=== PATIENT | male | born 1945 | race Caucasian/White ===

== ENCOUNTER 2018-07-09 01:55 | Emergency (ER) | payer MEDICARE, OTHER ==
[~2018-07-09 01:55] MED LIST: ANAS1TAB12 PO; AZIT-18 PO; DOC100 PO; LACT1CAP50 PO; MELA1TAB23 PO; METH10CA PO; NEB5 PO; PER PO; POTA99TA13 PO; [UNRECOGNIZED DRUG - CODE] PO; [UNRECOGNIZED DRUG - CODE] PO; [UNRECOGNIZED DRUG - CODE] PO
--- NOTE | 2018-07-09 02:06 | ER Report ---
History and Physical Time Seen By MD: 02:06 Hx. of Stated Complaint: PT REPORTS LEFT SIDED LOWER BACK PAIN WITH POSSIBLE ABSCESS. HPI/ROS CHIEF COMPLAINT: Left lower back pain. Lash flank pain HISTORY OF PRESENT ILLNESS: 73-year-old male presents ambulatory to the ER complaining of pain in his left flank for several days. He notes a small pustule over on his left flank. He thought he might be developing an abscess. He has a history of myelodysplastic syndrome and chronic immune deficiency. He reports she's had several infections which took a long time to heal. She notes no fever or chills. He's had no productive cough or shortness of breath. He's had no dysuria, frequency or hematuria. Patient describes deep aching 7/10 pain aggravated by movement. Patient notes no nausea, vomiting, diarrhea or const ipation. REVIEW OF SYSTEMS: Respiratory: No cough, no dyspnea. Cardiovascular: No chest pain, no palpitations. Gastrointestinal: No vomiting, no abdominal pain. Musculoskeletal: As above Allergies: Uncoded Allergies: hayfever (Allergy, Mild, UNKNOWN, 01/28/12) Home Meds Active Scripts Hydrocodone Bit/Acetaminophen (HYDROCODON-ACETAMINOPHEN 5-325) 1 Each Tablet, 1 EACH PO Q4-6H PRN for PAIN, #12 TAB Prov:MELODIE FORD DO 07/09/18 Cephalexin 500 Mg Tab (KEFLEX 500 MG TAB) 500 Mg Tablet, 500 MG PO TID for infection, #20 TAB Prov:MELODIE FORD DO 07/09/18 Reported Medications Atorvastatin Calcium (ATORVASTATIN CALCIUM) 40 Mg Tablet, 1 TAB PO QDAY, TAB 07/09/18 Cetirizine Hcl (ZYRTEC) 10 Mg Tablet, 10 MG PO QPM, TAB 07/09/18 Aspirin (ASPIR 81) 81 Mg Tablet.dr, 81 MG PO QPM, TAB 07/09/18 Potassium (Potassium) 99 Mg Tablet, 99 MG PO DAILY, 0 Refills 08/06/11 Calcium/Magnesium (Rogelio-Mag With Aspartates Tablet) 1 Each Tablet, 1 EACH PO DAILY, 0 Refills 08/06/11 Cholecalciferol (Vitamin D) 2,000 Unit Tablet, 2400 UNIT PO DAILY, 0 Refills 08/06/11 Methyltestosterone (Android) 10 Mg Capsule, 5 MG PO DAILY, 0 Refills 08/06/11 Discontinued Reported Medications Melatonin (Melatonin) 1 Mg Tablet, 1 MG PO HS PRN, 0 Refills 08/06/11 Gelatin (Gelatin) 1 Cap Capsule, 1 CAP PO DAILY, 0 Refills 08/06/11 Nebivolol Hcl (Bystolic) 5 Mg Tablet, 5 MG PO DAILY, 0 Refills 08/06/11 Discontinued Scripts Azithromycin 250 Mg Tab (AZITHROMYCIN 250 MG TAB) 250 Mg Tablet, 0 PO QDAY, #6 TAB TAKE 2 TABLETS ON DAY 1 AND 1 TABLET ON DAYS 2-5 Prov:ELISEO PAUL MD 08/10/14 Past Medical/Surgical History PAST MEDICAL HISTORY Significant for: 1. Sleep apnea. The patient tried continuous passive airway pressure (CPAP), but it did not work for him. 2. Hypertension. 3. Myelodysplastic syndrome, consult at [facility] in [place] PAST SURGICAL HISTORY 1. Removal of a digital cyst from the left middle finger in 2002. 2. Broken right leg as a child. SOCIAL HISTORY The patient is single and does not have children. He works as a teacher. He has about five drinks per year. He denies any abuse of tobacco or drugs. FAMILY HISTORY Negative for cancer or blood diseases. Reviewed Nurses Notes: Yes Constitutional Vital Sign - Last 24 Hours 07/09/18 07/09/18 07/09/18 07/09/18 02:01 02:01 02:30 02:35 Temp 98.9 Pulse 80 74 Resp 18 B/P (MAP) 161/88 (112) 161/88 141/84 (103) Pulse Ox 95 94 O2 Delivery Room Air 07/09/18 07/09/18 07/09/18 07/09/18 02:47 02:50 03:00 03:05 Pulse 66 63 B/P (MAP) 137/77 (97) Pulse Ox 99 99 O2 Flow Rate 2.0 07/09/18 07/09/18 07/09/18 07/09/18 03:20 03:30 03:35 03:50 Pulse 64 67 63 B/P (MAP) 134/81 (98) Pulse Ox 99 99 07/09/18 07/09/18 07/09/18 07/09/18 04:03 04:05 04:20 04:30 Pulse 66 B/P (MAP) 115/75 (88) 120/74 (89) Pulse Ox 99 07/09/18 07/09/18 07/09/18 07/09/18 04:35 05:05 05:10 05:25 Pulse 69 58 Pulse Ox 98 97 98 96 07/09/18 07/09/18 05:40 05:55 Pulse Ox 97 99 Physical Exam Vital signs stable, afebrile, pulse ox normal General Appearance: The patient is alert, has no immediate need for airway protection and no current signs of toxicity. Skin warm, dry pain, mild distress HEENT: Pupils equal and round no injection. TMs normal, oropharynx without redness or exudate, mucous. Membranes are moist Respiratory: Chest is non tender, lungs are clear to auscultation. No wheezing or rails Cardiac: regular rate and rhythm, no murmur Gastrointestinal: Abdomen is soft and non tender, no masses, bowel sounds normal., Left CVA tenderness, there is a 1 cm healing erythematous area with a central scab on the left lateral flank. There is no fluctuance or warmth noted Musculoskeletal: Neck: Neck is supple and non tender. No lymphadenopathy, no meningismus Extremities have full range of motion and are non tender. No edema, no calf te nderness Skin: No rashes or lesions. DIFFERENTIAL DIAGNOSIS: After history and physical exam differential diagnosis was considered for flank pain including but not limited to musculoskeletal causes, kidney stone, pyelonephritis, shingles, and intra-abdominal causes such as diverticulitis and appendicitis. Additionally,abdominal pain including but not limited to appendicitis, cholecystitis, gastritis and urinary tract infection. Medical Decision Making Data Points Result Diagram: 07/09/18 0227 07/09/18 0227 Laboratory Hematology Test 07/09/18 02:27 07/09/18 03:42 Red Blood Count 3.32 M/uL (4.00-5.60) Mean Corpuscular Volume 104.5 fL (80.0-96.0) Mean Corpuscular Hemoglobin 35.9 pg (26.0-33.0) Mean Corpuscular Hemoglobin Concent 34.3 g/dL (32.0-36.0) Red Cell Distribution Width 16.7 % (11.5-14.5) Mean Platelet Volume 9.6 fL (7.2-11.1) Neutrophils (%) (Auto) % (39.4-72.5) Lymphocytes (%) (Auto) % (17.6-49.6) Monocytes (%) (Auto) % (4.1-12.4) Eosinophils (%) (Auto) % (0.4-6.7) Basophils (%) (Auto) % (0.3-1.4) Nucleated RBC Relative Count (auto) /100WBC Neutrophils # (Auto) K/uL (2.0-7.4) Lymphocytes # (Auto) K/uL (1.3-3.6) Monocytes # (Auto) K/uL (0.3-1.0) Eosinophils # (Auto) K/uL (0.0-0.5) Basophils # (Auto) K/uL (0.0-0.1) Nucleated RBC Absolute Count (auto) K/uL Neutrophils % (Manual) 35 % (39.4-72.5) Band Neutrophils % 4 % Lymphocytes % (Manual) 39 % (17.6-49.6) Atypical Lymphocytes % 3 % Monocytes % (Manual) 17 % (4.1-12.4) Eosinophils % (Manual) 0 % (0.4-6.7) Basophils % (Manual) 0 % (0.3-1.4) Metamyelocytes % 2 % Peripheral Blood Smear Yes Y/N Prothrombin Time 15.5 seconds (12.0-14.4) Prothromb Time International Ratio 1.22 Activated Partial Thromboplast Time 32 seconds (23-35) Sodium Level 139 mmol/L (137-145) Potassium Level 3.8 mmol/L (3.5-5.0) Chloride Level 104 mmol/L (98-107) Carbon Dioxide Level 27 mmol/L (22-30) Blood Urea Nitrogen 20 mg/dl (9-21) Creatinine 1.10 mg/dl (0.66-1.25) Glomerular Filtration Rate Calc > 60.0 Random Glucose 139 mg/dl (75-110) Calcium Level 8.9 mg/dl (8.4-10.2) Total Bilirubin 1.1 mg/dl (0.2-1.3) Aspartate Amino Transf (AST/SGOT) 20 U/L (0-35) Alanine Aminotransferase (ALT/SGPT) 23 U/L (0-56) Alkaline Phosphatase 85 U/L (0-126) Total Protein 8.3 g/dl (6.3-8.2) Albumin 4.0 g/dl (3.5-5.0) Amylase Level 78 U/L (0-110) Lipase 73 U/L (23-300) Prostate Specific Antigen 2.08 ng/ml (0.0-4.0) Urine Color Yellow Urine Clarity Clear Urine pH 5.0 pH (4.8-9.5) Urine Specific [place] 1.023 Urine Protein Negative mg/dL (NEGATIVE) Urine Glucose (UA) Negative mg/dL (NEGATIVE) Urine Ketones Negative mg/dL (NEGATIVE) Urine Blood Negative (NEGATIVE) Urine Nitrite Negative (NEGATIVE) Urine Bilirubin Negative (NEGATIVE) Urine Urobilinogen Negative mg/dL (0.2-1.9) Urine Leukocyte Esterase Negative (NEGATIVE) Urine RBC <1 /HPF (0-2/HPF) Urine WBC <1 /HPF (0-5/HPF) Urine Squamous Epithelial Cells None /LPF (</=FEW) Urine Bacteria Negative /HPF (NONE-FEW) Urine Hyaline Casts Few /LPF (NONE-FEW) Urine Mucus Few /HPF (NONE-FEW) Chemistry Test 07/09/18 02:27 07/09/18 03:42 White Blood Count 2.9 k/uL (4.5-11.0) Red Blood Count 3.32 M/uL (4.00-5.60) Hemoglobin 11.9 g/dL (14.0-18.0) Hematocrit 34.7 % (42.0-52.0) Mean Corpuscular Volume 104.5 fL (80.0-96.0) Mean Corpuscular Hemoglobin 35.9 pg (26.0-33.0) Mean Corpuscular Hemoglobin Concent 34.3 g/dL (32.0-36.0) Red Cell Distribution Width 16.7 % (11.5-14.5) Platelet Count 107 K/uL (150-450) Mean Platelet Volume 9.6 fL (7.2-11.1) Neutrophils (%) (Auto) % (39.4-72.5) Lymphocytes (%) (Auto) % (17.6-49.6) Monocytes (%) (Auto) % (4.1-12.4) Eosinophils (%) (Auto) % (0.4-6.7) Basophils (%) (Auto) % (0.3-1.4) Nucleated RBC Relative Count (auto) /100WBC Neutrophils # (Auto) K/uL (2.0-7.4) Lymphocytes # (Auto) K/uL (1.3-3.6) Monocytes # (Auto) K/uL (0.3-1.0) Eosinophils # (Auto) K/uL (0.0-0.5) Basophils # (Auto) K/uL (0.0-0.1) Nucleated RBC Absolute Count (auto) K/uL Neutrophils % (Manual) 35 % (39.4-72.5) Band Neutrophils % 4 % Lymphocytes % (Manual) 39 % (17.6-49.6) Atypical Lymphocytes % 3 % Monocytes % (Manual) 17 % (4.1-12.4) Eosinophils % (Manual) 0 % (0.4-6.7) Basophils % (Manual) 0 % (0.3-1.4) Metamyelocytes % 2 % Peripheral Blood Smear Yes Y/N Prothrombin Time 15.5 seconds (12.0-14.4) Prothromb Time International Ratio 1.22 Activated Partial Thromboplast Time 32 seconds (23-35) Glomerular Filtration Rate Calc > 60.0 Calcium Level 8.9 mg/dl (8.4-10.2) Total Bilirubin 1.1 mg/dl (0.2-1.3) Aspartate Amino Transf (AST/SGOT) 20 U/L (0-35) Alanine Aminotransferase (ALT/SGPT) 23 U/L (0-56) Alkaline Phosphatase 85 U/L (0-126) Total Protein 8.3 g/dl (6.3-8.2) Albumin 4.0 g/dl (3.5-5.0) Amylase Level 78 U/L (0-110) Lipase 73 U/L (23-300) Prostate Specific Antigen 2.08 ng/ml (0.0-4.0) Urine Color Yellow Urine Clarity Clear Urine pH 5.0 pH (4.8-9.5) Urine Specific [place] 1.023 Urine Protein Negative mg/dL (NEGATIVE) Urine Glucose (UA) Negative mg/dL (NEGATIVE) Urine Ketones Negative mg/dL (NEGATIVE) Urine Blood Negative (NEGATIVE) Urine Nitrite Negative (NEGATIVE) Urine Bilirubin Negative (NEGATIVE) Urine Urobilinogen Negative mg/dL (0.2-1.9) Urine Leukocyte Esterase Negative (NEGATIVE) Urine RBC <1 /HPF (0-2/HPF) Urine WBC <1 /HPF (0-5/HPF) Urine Squamous Epithelial Cells None /LPF (</=FEW) Urine Bacteria Negative /HPF (NONE-FEW) Urine Hyaline Casts Few /LPF (NONE-FEW) Urine Mucus Few /HPF (NONE-FEW) Coagulation Test 07/09/18 02:27 Prothrombin Time 15.5 seconds Prothromb Time International Ratio 1.22 Activated Partial Thromboplast Time 32 seconds Urinalysis Test 07/09/18 03:42 Urine Color Yellow Urine Clarity Clear Urine pH 5.0 pH (4.8-9.5) Urine Specific [place] 1.023 Urine Protein Negative mg/dL (NEGATIVE) Urine Glucose (UA) Negative mg/dL (NEGATIVE) Urine Ketones Negative mg/dL (NEGATIVE) Urine Blood Negative (NEGATIVE) Urine Nitrite Negative (NEGATIVE) Urine Bilirubin Negative (NEGATIVE) Urine Urobilinogen Negative mg/dL (0.2-1.9) Urine Leukocyte Esterase Negative (NEGATIVE) Urine RBC <1 /HPF (0-2/HPF) Urine WBC <1 /HPF (0-5/HPF) Urine Squamous Epithelial Cells None /LPF (</=FEW) Urine Bacteria Negative /HPF (NONE-FEW) Urine Hyaline Casts Few /LPF (NONE-FEW) Urine Mucus Few /HPF (NONE-FEW) EKG/Imaging Imaging Results: CT scan of the abdomen and pelvis with IV contrast was obtained. The results of the study are CT of the abdomen and pelvis with contrast: Indication: Length pain. Technique: Helical CT was performed through the abdomen and pelvis following IV contrast enhancement with 75 cc of Isovue-370. Multiplanar reconstructions are reviewed. One of the following dose optimization techniques was utilized in the performance of this exam: Automated exposure control; adjustment of the mA and/or kV according to the patient's size; or use of an iterative reconstruction technique. Specific details can be referenced in the facility's radiology CT exam operational policy. Comparison: None. Lower lung louie: There are mild emphysematous changes in the lower lung louie. No acute parenchymal or pleural process is identified. Atherosclerotic calcification is observed in the coronary arteries. Liver: Normal in size, shape, and density. There is uniform enhancement of the venous structures. Gallbladder/biliary tree: The gallbladder is normal in size and homogeneous in density. The bile ducts are normal in caliber. Pancreas: Normal in size, shape, and density. Spleen: Normal in size, shape, and density. A tiny accessory spleen is incidentally noted. Adrenal glands: Within normal limits. Kidneys/urinary bladder: The kidneys are normal in size and shape. There is incidental note of small cysts in the left kidney. There are no signs of urinary tract calculus or obstruction. The bladder appears homogeneous. Intestinal structures: There is mild diverticulosis in the sigmoid colon. There are no signs of acute diverticulitis. There is no evidence of obstruction or focal inflammatory changes. Pelvis: The prostate is enlarged and heterogeneous, measuring approximately 5.9 cm in size. The pelvis is otherwise unremarkable. Aorta and vascular structures: There is moderate atherosclerotic calcification in the aorta and vascular structures. There is no evidence of aneurysm. Ascites or fluid collections: None seen. Skeletal structures: There are diffuse moderate degenerative changes in the spine. No acute skeletal deformity is identified. Impression: No evidence of urinary tract calculus or obstruction. No acute process is otherwise noted in the abdomen or pelvis. The study was read by the radiologist. I viewed the images myself on the PACS system. ED Course/Re-evaluation Clinical Indication for ER IV: Hydration, IV Access ED Course Patient was admitted to an examination room. H&P was done. The differential diagnoses was considered. On clinical examination. Patient with severe left flank pain of unclear etiology. He is afebrile. He has myelodysplastic syndrome. He has pancytopenia. He's had no fever. He's had no dysuria or hematuria. He's had no cough or shortness of breath. He has increased pain wit h movement suggesting musculoskeletal in nature. There is a pustule with a scab on it on the left flank that appears to be healing. There is not fluctuance. Does not appear to need incision and drainage. Patient has continued pain despite relatively large doses of opiate pain relievers. A CT scan of the abdomen and pelvis is performed to rule out internal pathology as etiology of the pain. The scan is unremarkable except for an accessory small spleen that is noted. She will be covered with Keflex for infection. He's advised to follow- up with his oncology specialists in the short-term. Decision to Disposition Date: Jul 09, 2018 Decision to Disposition Time: 05:58 Depart Departure Latest Vital Signs Vital Signs Date Time Temp Pulse Resp B/P (MAP) Pulse Ox O2 Delivery O2 Flow Rate FiO2 07/09/18 05:55 99 07/09/18 05:10 58 07/09/18 04:30 120/74 (89) 07/09/18 02:47 2.0 07/09/18 02:01 98.9 18 Room Air Impression: Primary Impression: Left flank pain Additional Impressions: Skin pustule Myelodysplastic syndrome Condition: Improved Disposition: HOME OR SELF-CARE Referrals: [facility]EE POTTERP (PCP) New Scripts Hydrocodone Bit/Acetaminophen (HYDROCODON-ACETAMINOPHEN 5-325) 1 Each Tablet 1 EACH PO Q4-6H PRN for PAIN, #12 TAB Prov: MELODIE FORD DO 07/09/18 Cephalexin 500 Mg Tab (KEFLEX 500 MG TAB) 500 Mg Tablet 500 MG PO TID for infection, #20 TAB Prov: MELODIE FORD DO 07/09/18 Patient Instructions: Cellulitis (ED), Flank Pain (ED) Additional Instructions: Follow-up with primary care if unimproved in 3-5 days Take ibuprofen 200 mg 3 tablets 3 times a day with food Apply heating pad to your left flank Problem Qualifiers MELODIE FORD DO Jul 09, 2018 02:06
[2018-07-09] MEDS ORDERED: CETI-176 PO (02:07)
[2018-07-09] MEDS ORDERED: ATOR40TA69 PO (02:07)
[2018-07-09] MEDS ORDERED: ASPI-1471 PO (02:07)
[2018-07-09] MEDS ORDERED: NS(*) 0.9% 1000 ML BAG 1,000 ML IV ONE (02:17)
[2018-07-09] MEDS ORDERED: ONDANSETRON 4 MG/2 ML VIAL IVP ONE (02:20)
[2018-07-09] MEDS ORDERED: fentaNYL CITR 100 MCG/2 ML AMP IVP ONE (02:20)
[2018-07-09 02:43] LABS: PLATELET COUNT, AUTOMATED 107 K/uL (150-450)
[2018-07-09 02:49] LABS: INR 1.22
[2018-07-09] MEDS ORDERED: HYDROMORPHONE HCL 1 MG/ML SYRINGE IVP ONE (04:15)
[2018-07-09] MEDS ORDERED: IOPAMIDOL 76% 75 ML INFUS BTL 75 ML ONE (04:25)
[2018-07-09 04:30] VITALS: BP 120/74
--- NOTE | 2018-07-09 05:46 | RADIOLOGY IMAGING REPORT ---
FACILITY: [facility] PATIENT NAME: Garrett Schaffer : 1945 MR: [id number] V: [id number] EXAM DATE: ORDERING PHYSICIAN: MELODIE FORD TECHNOLOGIST: [place] [facility] [place] Garrett Schaffer : 1945 Visit/Account:[id number] Date of Sevice: 07/09/2018 CT of the abdomen and pelvis with contrast: Indication: Length pain. Technique: Helical CT was performed through the abdomen and pelvis following IV contrast enhancement with 75 cc of Isovue-370. Multiplanar reconstructions are reviewed. One of the following dose optimization techniques was utilized in the performance of this exam: Autom ated exposure control; adjustment of the mA and/or kV according to the patient's size; or use of an i terative reconstruction technique. Specific details can be referenced in the facility's radiology CT exam operational policy. Comparison: None. Lower lung louie: There are mild emphysematous changes in the lower lung louie. No acute parenchyma l or pleural process is identified. Atherosclerotic calcification is observed in the coronary arterie s. Liver: Normal in size, shape, and density. There is uniform enhancement of the venous structures. Gallbladder/biliary tree: The gallbladder is normal in size and homogeneous in density. The bile duct s are normal in caliber. Pancreas: Normal in size, shape, and density. Spleen: Normal in size, shape, and density. A tiny accessory spleen is incidentally noted. Adrenal glands: Within normal limits. Kidneys/urinary bladder: The kidneys are normal in size and shape. There is incidental note of small cysts in the left kidney. There are no signs of urinary tract calculus or obstruction. The bladder appears homogeneous. Intestinal structures: There is mild diverticulosis in the sigmoid colon. There are no signs of acute diverticulitis. There is no evidence of obstruction or focal inflammatory changes. Pelvis: The prostate is enlarged and heterogeneous, measuring approximately 5.9 cm in size. The pelvi s is otherwise unremarkable. Aorta and vascular structures: There is moderate atherosclerotic calcification in the aorta and vascu lar structures. There is no evidence of aneurysm. Ascites or fluid collections: None seen. Skeletal structures: There are diffuse moderate degenerative changes in the spine. No acute skeletal deformity is identified. Impression: No evidence of urinary tract calculus or obstruction. No acute process is otherwise noted in the abdomen or pelvis. Report Dictated By: Darrell Loaiza MD at 07/09/2018 5:14 AM Report E-Signed By: Darrell Loaiza MD at 07/09/2018 5:41 AM WSN:[id number]
[2018-07-09] MEDS ORDERED: LOR5/325 PO (06:01)
[2018-07-09] MEDS ORDERED: CEPH500T7 PO (06:01)
[2018-07-09] MEDS ORDERED: ACET/HYDROC 5/325MG TH ER ONLY 2 TAB/BOTTLE PO ONE (06:05)
[2018-07-09] MEDS ORDERED: CEPHALEXIN MONO 500 MG CAP PO ONE (06:05)
== END 2018-07-09 06:20 | disposition home or self-care (01) ==
LOC: ER 02:18
DX: L08.9 Local infection of the skin and subcutaneous tissue, unspecified (principal); D46.9 Myelodysplastic syndrome, unspecified; D61.818 Other pancytopenia
CPT/HCPCS: 74177; 81001; 82150; 83690; 84153; 85025; 85610; 85730; 96361; 96374; 96375; 99284; A9270; J1170; J2405; J3010; J7030; Q9967; 82040; 82247; 82310; 82374; 82435; 82565; 82947; 84075; 84132; 84155; 84295; 84450; 84460; 84520